=== PATIENT | female | born 1995 | race American Indian/Alaskan Native ===

== ENCOUNTER 2018-08-21 21:45 | Outpatient (CLI) | payer MEDICAID ==
[2018-08-21] MEDS ORDERED: LACTATED RINGERS 1,000 ML IV ONE (22:23)
[2018-08-21 22:43] LABS: Bilirubin,Urine NEG (Negative); Blood,Urine NEG (Negative); Color,Urine Yellow (Yellow); Mucus,Urine FEW /HPF; Protein,Urine <15 mg/dL mg/dL (Negative)
[2018-08-21] MEDS ORDERED: TYLENOL PO ONE (23:18)
[2018-08-22] MEDS ORDERED: ROCEPHIN/NS 1 GM/50 ML 1 GM/50 ML BAG IV ONE (01:11)
[2018-08-22 01:18] VITALS: BP 99/56
== END 2018-08-22 02:02 | disposition home or self-care (01) ==
LOC: TRG 21:45
PROVIDERS: ATTEND Obstetrics & Gynecology
DX: O26.893 Other specified pregnancy related conditions, third trimester (principal); R10.30 Lower abdominal pain, unspecified; R05 Cough; R09.89 Other specified symptoms and signs involving the circulatory and respiratory systems; Z3A.36 36 weeks gestation of pregnancy
CPT/HCPCS: 59025; 81001; 87086; 96360; 96365; J0696; J7120; 96361

== ENCOUNTER 2018-09-09 00:10 | Outpatient (CLI) | payer MEDICAID ==
[2018-09-09 00:22] VITALS: BP 107/52
--- NOTE | 2018-09-09 02:36 | Ultrasound Report ---
PROCEDURE: US OB BPP WO NON-STRESS TECHNIQUE: Transabdominal imaging was obtained of the pelvis for a biophysical profile. HISTORY: fluid leaking variable decel; BPP YAZMIN COMPARISONS: 07/26/2018 FINDINGS: For breathing movements, a score of 2 out of 2 was obtained. For movements, a score of 2 out of 2 was obtained. For posture and tone, a score of 2 out of 2 was obtained. Qualitative amniotic fluid volume, a score of 2 out of 2 was obtained. The heart rate is 130 BPM. IMPRESSION: Biophysical profile score is 8 out of 8. The heart rate is 130 BPM.. This document is electronically signed by Faisal Carney MD., September 09 2018 02:35:02 AM ET
--- NOTE | 2018-09-09 03:32 | Ultrasound Report ---
PROCEDURE: US OB BPP WO NON-STRESS TECHNIQUE: Transabdominal imaging was obtained of the pelvis for a biophysical profile. HISTORY: fluid leaking variable decel; BPP YAZMIN COMPARISONS: 07/26/2018 FINDINGS: For breathing movements, a score of 2 out of 2 was obtained. For movements, a score of 2 out of 2 was obtained. For posture and tone, a score of 2 out of 2 was obtained. Qualitative amniotic fluid volume, a score of 2 out of 2 was obtained. The heart rate is 130 BPM. Amniotic fluid index is 7.4 cm. IMPRESSION: Biophysical profile score is 8 out of 8. Amniotic fluid index is 7.4 cm. This document is electronically signed by Chris Odonnell MD., September 09 2018 03:30:57 AM ET
== END 2018-09-09 02:00 | disposition home or self-care (01) ==
LOC: TRG 00:10
PROVIDERS: ATTEND Obstetrics & Gynecology
DX: O42.92 Full-term premature rupture of membranes, unspecified as to length of time between rupture and onset of labor (principal); Z3A.39 39 weeks gestation of pregnancy
CPT/HCPCS: 59025; 76815; 76819

== ENCOUNTER 2018-09-11 23:46 | Inpatient (IN) | payer MEDICAID ==
[2018-09-12] MEDS ORDERED: LACTATED RINGERS 1,000 ML ONE (01:13)
--- NOTE | 2018-09-12 01:55 | History and Physical Report ---
History of Present Illness Date of examination: 09/12/18 Date of admission: 09/12/18 01:40 Chief complaint: Water broke at 1907, contractions q6 minutes History of present illness: Pt reports leaking of clear fluid since 1906 last night. She has been [place] intermittently since then. Good FM, no vaginal bleeding. Her has not had any complications. She is GBS negative and planning to bottle feed. Past History Past Medical History: no pertinent history Past Surgical History: no surgical history Social history: no significant social history - Obstetrical History Expected Date of Delivery: 09/16/18 Actual Gestation: 39 Week(s) 3 Day(s) : 1 Para: 0 Medications and Allergies Allergies Allergy/AdvReac Type Severity Reaction Status Date / Time No Known Allergies Allergy Verified 07/25/18 23:11 Home Medications Medication Instructions Recorded Confirmed Last Taken Type Vit-Fe Fumar-FA [ 1 tab PO DAILY 08/21/18 09/12/18 09/11/18 H istory Vitamin] Active Meds: Active Medications Lactated Ringer's (Lactated Ringers) 1,000 mls @ 125 mls/hr IV DIRECT LINDA Review of Systems All systems: negative Cardiovascular: no chest pain, no shortness of breath, no leg edema Breasts: normal Gastrointestinal: no nausea, no vomiting Genitourinary: leakage of fluid, no vaginal bleeding - Vital Signs Vital signs: Vital Signs Pulse BP 90 108/63 09/12/18 00:02 09/12/18 00:02 Temp Pulse Resp BP Pulse Ox 98.6 F 76 18 111/62 99 09/12/18 00:43 09/12/18 01:39 09/12/18 00:43 09/12/18 01:39 09/12/18 00:52 - Physical Exam Cardiovascular: Regular rate, Normal S1, Normal S2, No murmurs Lungs: Positive: Clear to auscultation, Normal air movement Abdomen: Positive: normal appearance, soft - Obstetrical FHR: category 1 Uterine Contraction Monitor Mode: External Uterine Contraction Pattern: Irregular Results All other labs normal. Assessment and Plan A: 23 yo at 39.3 wks with PROM in early labor Clear fluid, vital signs stable GBS negative Cervix favorable for induction P: Admit to L&D, begin Pitocin augmentation
[2018-09-12] MEDS ORDERED: MINERAL OIL PO PRN (01:57)
[2018-09-12] MEDS ORDERED: ZOFRAN IV PRN ×2 (01:57→10:08)
[2018-09-12] MEDS ORDERED: SUBLIMAZE IV PRN (01:57)
[2018-09-12] MEDS ORDERED: NUBAIN IV PRN (01:57)
[2018-09-12] MEDS ORDERED: STADOL IV PRN (01:57)
[2018-09-12] MEDS ORDERED: BRETHINE SUB-Q PRN (01:57)
[2018-09-12] MEDS ORDERED: BRETHINE IVP PRN (01:57)
[2018-09-12] MEDS ORDERED: XYLOCAINE 2% INFILTRATI ONE (01:57)
[2018-09-12] MEDS ORDERED: PHENERGAN PO PRN ×2 (01:57→10:08)
[2018-09-12] MEDS ORDERED: NARCAN 0.4 MG/1 ML IV PRN (01:57)
[2018-09-12] MEDS ORDERED: TYLENOL PO PRN ×2 (01:59→10:08)
[2018-09-12] MEDS ORDERED: PITOCin/NS 20 UNIT/1000ML DRIP 20 UNITS/1,000 ML BAG IV SCH ×2 (02:00→11:00)
[2018-09-12] MEDS ORDERED: PITOCin/NS 30 UNIT/500ML 30 UNITS/500 ML BAG IV SCH ×2 (02:00)
[2018-09-12] MEDS ORDERED: LACTATED RINGERS 1,000 ML IV SCH ×2 (02:00)
[2018-09-12 06:40] LABS: Hematocrit 31.4 % (30.3-42.9); Hemoglobin 10.4 gm/dl (10.1-14.3); Mean Corpuscular HGB Conc 33 % (30-34); Mean Corpuscular Volume 73 fl (79-97); Platelet Count 209 K/mm3 (140-440); Red Cell Distribution Width 15.2 % (13.2-15.2)
--- NOTE | 2018-09-12 07:05 | Anesthesia Consultation ---
Anesthesia Consult and Med Hx - Airway Anesthetic Teeth Evaluation: Good ROM Head & Neck: Adequate Mental/Hyoid Distance: Adequate Mallampati Class: Class I Intubation Access Assessment: Good - Pulmonary Exam CTA: Yes - Cardiac Exam Cardiac Exam: RRR - Pre-Operative Health Status ASA Pre-Surgery Classification: ASA2 Proposed Anesthetic Plan: Epidural - Pulmonary Hx Asthma: No - Cardiovascular System Hx Hypertension: No - Central Nervous System Hx Seizures: No Hx Psychiatric Problems: No - Endocrine Hx Renal Disease: No Hx Hypothyroidism: No Hx Hyperthyroidism: No - Hematic Hx Anemia: Yes (Beta Thalassemia Trait) Hx Sickle Cell Disease: No - Other Systems Hx Alcohol Use: No
[2018-09-12] MEDS ORDERED: NARCAN 2 MG/2 ML IV PRN (07:06)
--- NOTE | 2018-09-12 07:06 | Anesthesia Day of Surgery ---
Anesthesia Day of Surgery - Day of Surgery Patient Examined: Yes Patient H&P Reviewed: Yes Patient is NPO: Yes Beta Blockers: No Cardiac Clearance: No Pulmonary Clearance: No Jose Luis's Test: N/A
[2018-09-12] MEDS ORDERED: MARCAINE 0.25% INFILTRATI ONE (07:46)
[2018-09-12] MEDS ORDERED: fentaNYL-BUPIV 2 MCG/ML-0.125% 200 MCG/100 ML BAG EPIDURAL SCH (08:00)
--- NOTE | 2018-09-12 08:29 | Progress Note ---
Assessment and Plan A/P Prom 1907 Term 39 weeks vertex augment labor with pitocin expect vaginal delivery Subjective - Subjective Date of service: 09/12/18 Principal diagnosis: SROM Patient reports: loss of fluid, vaginal bleeding, movement normal, contractions, no new complaints Objective - Vital Signs Vital Signs: Vital Signs - 12hr 09/12/18 09/12/18 09/12/18 00:02 00:42 00:43 Temperature 98.6 F Pulse Rate 90 78 81 Respiratory 18 Rate Blood Pressure 108/63 Blood Pressure 110/65 [Left] O2 Sat by Pulse 98 98 Oximetry 09/12/18 09/12/18 09/12/18 00:47 00:48 00:52 Temperature Pulse Rate 81 86 83 Respiratory Rate Blood Pressure 110/65 Blood Pressure [Left] O2 Sat by Pulse 98 99 Oximetry 09/12/18 09/12/18 09/12/18 01:39 05:40 06:04 Temperature Pulse Rate 76 66 62 Respiratory Rate Blood Pressure 111/62 114/67 106/58 Blood Pressure [Left] O2 Sat by Pulse Oximetry 09/12/18 09/12/18 09/12/18 06:11 06:42 07:12 Temperature Pulse Rate 67 72 75 Respiratory Rate Blood Pressure 106/59 121/60 100/57 Blood Pressure [Left] O2 Sat by Pulse Oximetry 09/12/18 09/12/18 09/12/18 07:30 07:40 07:41 Temperature 97.6 F Pulse Rate 77 74 79 Respiratory 16 Rate Blood Pressure 128/73 116/55 Blood Pressure [Left] O2 Sat by Pulse 100 Oximetry 09/12/18 09/12/18 09/12/18 07:54 07:59 08:02 Temperature Pulse Rate 99 H 93 H 67 Respiratory Rate Blood Pressure 121/65 Blood Pressure [Left] O2 Sat by Pulse 99 97 Oximetry 09/12/18 09/12/18 09/12/18 08:04 08:07 08:09 Temperature Pulse Rate 71 70 75 Respiratory Rate Blood Pressure 112/65 Blood Pressure [Left] O2 Sat by Pulse 99 98 Oximetry 09/12/18 09/12/18 09/12/18 08:13 08:14 08:17 Temperature Pulse Rate 76 71 71 Respiratory Rate Blood Pressure 122/70 120/65 Blood Pressure [Left] O2 Sat by Pulse 100 Oximetry 09/12/18 09/12/18 08:19 08:24 Temperature Pulse Rate 73 70 Respiratory Rate Blood Pressure 112/59 Blood Pressure [Left] O2 Sat by Pulse 100 98 Oximetry - Exam Breasts: normal Cardiovascular: Regular rate, Normal S1 Lungs: Clear to auscultation, Normal air movement Abdomen: Present: normal appearance, soft, normal bowel sounds. Absent: distention, tenderness, guarding Vulva: both: normal Uterus: Present: normal, firm, fundal height above umbilicus. Absent: bogginess, tenderness FHR: category 1 Cervical Dilatation: 4 Uterine Contraction Pattern: Regular Uterine Tone Measurement Phase: Contraction Uterine Contraction Intensity: Mild Extremities: normal Deep Tendon Reflex Grade: Normal +2 - Labs Labs: Abnormal Labs 09/12/18 01:20 WBC 14.4 H MCV 73 L MCH 24 L Laboratory Results - last 24 hr 09/12/18 09/12/18 01:20 01:20 WBC 14.4 H RBC 4.30 Hgb 10.4 Hct 31.4 MCV 73 L MCH 24 L MCHC 33 RDW 15.2 Plt Count 209 Blood Type B POSITIVE Antibody Screen Negative
[2018-09-12] MEDS ORDERED: CYTOTEC ONE (09:59)
[2018-09-12] MEDS ORDERED: CYTOTEC PR ONE ×2 (09:59→10:08)
[2018-09-12] MEDS ORDERED: PHENERGAN PR PRN (10:08)
[2018-09-12] MEDS ORDERED: TUCKS PAD TP PRN (10:08)
[2018-09-12] MEDS ORDERED: BENADRYL PO PRN (10:08)
[2018-09-12] MEDS ORDERED: DULCOLAX PR PRN (10:08)
[2018-09-12] MEDS ORDERED: PERCOCET 5/325 PO PRN (10:08)
[2018-09-12] MEDS ORDERED: LANSINOH TP PRN (10:08)
[2018-09-12] MEDS ORDERED: TORADOL IV PRN (10:08)
[2018-09-12] MEDS ORDERED: MILK OF MAGNESIA PO PRN (10:08)
[2018-09-12] MEDS ORDERED: NORCO 5/325 PO PRN (10:08)
--- NOTE | 2018-09-12 10:18 | Procedure Note ---
OB Delivery Note - Delivery Date of Delivery: 09/12/18 Surgeon: KIMBERLYN GREEN Estimated blood loss: 500cc - Vaginal Delivery presentation: vertex Delivery position: OA Delivery induction: none Delivery augmentation: pitocin Delivery monitor: external FHT, external uterine Route of delivery: Delivery placenta: spontaneous Delivery cord: 3 umbilical vessels Episiotomy: none Delivery laceration: 1st degree Delivery repair: vicryl Anesthesia: epidural Delivery comments: Patient was noted to be c/c/ +1 and commenced to pushing a viable male at 0953 in DALIA presntation wtih easily delivery of head and shoulders. The placenta was clamped and cut and placed on baby. The oropharynx and nasopharynx suction with bulb suctionThe placenta delivered intact with 3 vessel cord at 0954. Post bleeding commenced and double pitocina dn 800 ug MA placed with good hemostasis. EBL 500cc. Weight of baby 6 pounds 1 oz. baby and mom bonding together lac 1depree repaired with 2-0 vicryl b/l periurethral were not repaired hemostatic. - A at 1 minute: 8 at 5 minutes: 9 Gender: Male (weight 6 pounds 1 oz)
[2018-09-12] MEDS ORDERED: SODIUM CHLORIDE FLUSH SYRINGE 10 ML IV NR (11:00)
[2018-09-12] MEDS: IBUPROFEN PO SCH ×2 (18:10→23:41)
[2018-09-12] MEDS: COLACE PO SCH (23:41)
[2018-09-12] MEDS: SENOKOT S PO SCH (23:42)
[2018-09-12 23:54] LABS: Hematocrit 27.9 % (30.3-42.9)
[2018-09-13] MEDS: IBUPROFEN PO SCH ×3 (05:33→20:49)
[2018-09-13] MEDS ORDERED: M-M-R II VACCINE SUB-Q ONE (06:00)
[2018-09-13] MEDS ORDERED: BOOSTRIX IM ONE (06:00)
[2018-09-13] MEDS: PRENATAL VITAMIN PO SCH (11:15)
[2018-09-13] MEDS: COLACE PO SCH ×2 (11:15→21:00)
--- NOTE | 2018-09-13 11:34 | Progress Note ---
Assessment and Plan A/P PPD1 s/p vavd vss stable d/c home tomorrow Subjective - Subjective Date of service: 09/13/18 Principal diagnosis: vavd Patient reports: appetite normal, voiding normally, pain well controlled, flatus, ambulating normally : doing well Objective - Vital Signs Latest vital signs: Vital Signs Temp Pulse Resp BP BP BP Pulse Ox 09/13/18 08:21 98.2 F 67 16 102/56 98 09/13/18 08:04 71 87/49 09/13/18 00:00 98.0 F 86 18 109/73 99 09/12/18 18:10 20 09/12/18 16:03 98.5 F 82 20 104/67 99 09/12/18 12:00 98.6 F 72 20 111/69 100 Intake and Output 09/12/18 09/13/18 09/13/18 23:59 07:59 15:59 Intake Total 120 480 Output Total 600 Balance -480 480 Intake: Oral 120 480 Output: Urine 600 Void 600 Other: Total, Intake Amount 120 480 Total, Output Amount 600 # Voids Void 2 - Exam Breasts: Present: normal Cardiovascular: Present: Regular rate, Normal S1 Lungs: Present: Clear to auscultation, Normal air movement Abdomen: Present: normal appearance, soft, normal bowel sounds. Absent: distention, tenderness, guarding Vulva: both: normal Uterus: Present: normal, firm, fundal height below umbilicus. Absent: bogginess, tenderness Extremities: Present: normal Deep Tendon Reflex Grade: Normal +2 Incision: Present: normal - Labs Labs: Abnormal lab results 09/12/18 Range/Units 23:34 Hgb 9.0 L (10.1-14.3) gm/dl Hct 27.9 L (30.3-42.9) %
--- NOTE | 2018-09-13 11:35 | Discharge Summary ---
Providers - Providers Date of Admission: 09/12/18 01:40 Date of discharge: 09/14/18 Attending physician: KATIE ROCA Primary care physician: KATIE ROCA Hospitalization Reason for admission: rupture of membranes Delivery: vacuum extraction Episiotomy: none Laceration: 1st degree Incision: normal Other procedures: none complications: none Discharge diagnosis: IUP at term delivered Hospital course: unremarkable hospital course. VAVD . Doing well. Discharge home day 2 Condition at discharge: Good Disposition: DC-01 TO HOME OR SELFCARE Plan - Discharge Medications Prescriptions: Ferrous Sulfate [Feosol 325 MG tab] 325 mg PO BID #30 tablet Ibuprofen [Motrin] 600 mg PO Q8H PRN #30 tablet PRN Reason: Pain oxyCODONE /ACETAMINOPHEN [Percocet 5/325] 1 tab PO Q6HR PRN #30 tablet PRN Reason: Pain - Provider Discharge Summary Activity: routine, no sex for 6 weeks, no strenuous exercise Diet: routine Instructions: routine Additional instructions: [] Smoking cessation referral if applicable(refer to patient education folder for contact #) [] Refer to [facility] Booklet Call your doctor immediately for: * Fever > 100.5 * Heavy vaginal bleeding ( >1 pad per hour) * Severe persistent headache * Shortness of breath * Reddened, hot, painful area to leg or breast * Drainage or odor from incision. * Keep incision clean and dry at all times and follow doctor's instructions regarding bathing/showering - Follow up plan Follow up: KATIE ROCA MD [Primary Care Provider] - 10/10/18
[2018-09-14] MEDS: SENOKOT S PO SCH (01:46)
[2018-09-14] MEDS: IBUPROFEN PO SCH ×2 (02:32→09:33)
[2018-09-14] MEDS: COLACE PO SCH (09:34)
[2018-09-14] MEDS: PRENATAL VITAMIN PO SCH (09:35)
[2018-09-14 14:19] VITALS: BP 94/55
== END 2018-09-14 14:45 | disposition home or self-care (01) | DRG 775 ==
LOC: TRG 23:46 → LD 09-12 01:40 → OB 09-12 11:40
PROVIDERS: ADMIT Obstetrics & Gynecology; ATTEND Obstetrics & Gynecology
PROC: 10D07Z6 Extraction of Products of Conception, Vacuum, Via Natural or Artificial Opening (ICD-10-PCS; principal; 2018-09-12)
PROC: 3E0R3BZ Introduction of Anesthetic Agent into Spinal Canal, Percutaneous Approach (ICD-10-PCS; 2018-09-12)
PROC: 00HU33Z Insertion of Infusion Device into Spinal Canal, Percutaneous Approach (ICD-10-PCS; 2018-09-12)
PROC: 0HQ9XZZ Repair Perineum Skin, External Approach (ICD-10-PCS; 2018-09-12)
PROC: 3E0234Z Introduction of Serum, Toxoid and Vaccine into Muscle, Percutaneous Approach (ICD-10-PCS; 2018-09-13)
DX: O76 Abnormality in fetal heart rate and rhythm complicating labor and delivery (principal); O70.0 First degree perineal laceration during delivery; Z37.0 Single live birth; Z3A.39 39 weeks gestation of pregnancy; Z23 Encounter for immunization; O42.92 Full-term premature rupture of membranes, unspecified as to length of time between rupture and onset of labor
CPT/HCPCS: 36415; 59025; 76815; 76819; 85014; 85018; 85027; 86592; 86850; 86900; 86901; 90471; 90715; G0378; J0595; J2590; J7120